=== PATIENT | male | born 1950 | race African-American/Black ===

== ENCOUNTER 2018-12-02 22:14 | Emergency (ER) | payer MEDICARE ==
[~2018-12-02] VITALS: Ht 182.9 cm; Wt 101.4 kg
[2018-12-02 22:18] VITALS: Ht 182.9 cm; Wt 101.4 kg
[2018-12-02] MEDS ORDERED: LIPITOR40 MG PO (22:19)
[2018-12-02] MEDS ORDERED: LISINOPRIL2.5 MG PO (22:19)
[2018-12-02] MEDS ORDERED: [UNRECOGNIZED DRUG - REMARK] (22:20)
[2018-12-02 23:52] LABS: HEMATOCRIT 41.3 % (42.0-54.0); HEMOGLOBIN 13.7 g/dL (13.5-17.5); LYMPHOCYTES 35.5 % (15-50); MCH 28.8 pg (26.0-34.0); MCHC 33.2 g/dL (31.0-37.0); MCV 86.9 fL (80.0-100.0); MEAN PLATELET VOLUME 9.2 fL (7.4-10.4); NEUTROPHILS 53.4 % (40-80); PLATELET COUNT 270 10x3/uL (130-400); RBC 4.75 10x6/uL (4.20-6.10); RDW 14.5 % (11.5-14.5); WBC 5.8 10x3/uL (4.8-10.8)
[2018-12-02 23:53] LABS: ALBUMIN 3.8 g/dL (3.4-5.0); ANION GAP 13.3 mmol/L (8-16); BILIRUBIN - TOTAL 0.59 mg/dL (0.2-1.3); CALCIUM 9.1 mg/dL (8.5-10.1); CARBON DIOXIDE 27.9 mmol/L (21.0-32.0); CREATININE - SERUM 1.5 mg/dL (0.6-1.3); POTASSIUM - SERUM 4.2 mmol/L (3.5-5.1); PROTEIN - SERUM 7.7 g/dL (6.4-8.2)
[2018-12-03 02:46] VITALS: BP 159/87
== END 2018-12-03 02:47 | disposition home or self-care (01) ==
LOC: D.ER 22:14
PROVIDERS: Family Medicine
DX: R33.9 Retention of urine, unspecified (principal); N32.89 Other specified disorders of bladder

== ENCOUNTER 2018-12-04 20:16 | Emergency (ER) | payer MEDICARE ==
[~2018-12-04] VITALS: Ht 182.9 cm; Wt 103.6 kg
[~2018-12-04 20:16] MED LIST: LIPITOR40 MG PO; LISINOPRIL2.5 MG PO; [UNRECOGNIZED DRUG - REMARK]
[2018-12-04 20:34] VITALS: Ht 182.9 cm; Wt 103.6 kg
[2018-12-04 22:03] VITALS: BP 142/72
== END 2018-12-04 22:05 | disposition home or self-care (01) ==
LOC: D.ER 20:16
DX: R31.9 Hematuria, unspecified (principal)